=== PATIENT | male | born 1985 | race Caucasian/White ===

== ENCOUNTER 2018-11-18 16:27 | Emergency (ER) | payer MEDICAID ==
[~2018-11-18] VITALS: Ht 172.7 cm; Wt 60.8 kg
--- NOTE | 2018-11-18 16:40 | NUR ---
PT STATED THAT HE WAS NOT COMPLIANT WITH HIS HIV MEDICATION.
--- NOTE | 2018-11-18 16:40 | NUR ---
PT STATED THAT HE DRANK A LITER AND A HALF OF VODKA TODAY .
--- NOTE | 2018-11-18 16:40 | NUR ---
PT BIB RA WITH A C/O ETOH WITH N/V. PT IS ACTIVLY VOMITTING. PT WAS TRIAGED AND TAKEN TO ROOM 13. PT WAS PLACED ON THE MONITOR AND CONTINUOUS PULSE OX.
--- NOTE | 2018-11-18 16:50 | NUR ---
PT PULLED OFF ALL MONITOR LEADS. LEADS WERE ALL REPLACED AND PT WAS TOLD TO LEAVE THEM ON.
[2018-11-18] MEDS ORDERED: LORAZEPAM INJ 2 MG/ML VIAL ONE (16:55)
[2018-11-18] MEDS ORDERED: IV NS 0.9% 1,000 ML BAG IV ONE (17:00)
[2018-11-18] MEDS ORDERED: ONDANSETRON HCL/PF 4 MG/2 ML VIAL IVP ONE (17:00)
[2018-11-18] MEDS ORDERED: LORAZEPAM INJ 2 MG/ML VIAL IV ONE (17:00)
[2018-11-18] MEDS ORDERED: ONDANSETRON HCL/PF 4 MG/2 ML VIAL ONE (17:04)
[2018-11-18 17:13] LABS: BASOPHILS # (AUTO) 0.1 /CMM (0.0-0.2); BASOPHILS % (AUTO) 1.2 % (0.0-2.0); EOSINOPHILS % (AUTO) 0.5 % (0.0-6.0); HEMATOCRIT 46 % (39-51); HEMOGLOBIN 15.9 g/dL (13.5-17.5); LYMPHOCYTES # (AUTO) 1.1 /CMM (0.8-4.8); LYMPHOCYTES % (AUTO) 21.5 % (20.0-44.0); MEAN CORPUSCULAR HGB CONC 35 g/dl (31.0-36.0); MEAN CORPUSCULAR VOLUME 93 fL (80-96); MONOCYTES # (AUTO) 0.4 /CMM (0.1-1.30); MONOCYTES % (AUTO) 6.9 % (2.0-12.0); NEUTROPHILS # (AUTO) 3.6 /CMM (1.8-8.9); NEUTROPHILS % (AUTO) 69.9 % (43.0-81.0); PLATELET COUNT (AUTO) 129 /CMM (150-450); RED BLOOD CELL COUNT(AUTO) 4.92 MIL/uL (4.5-6.0); WHITE BLOOD COUNT (AUTO) 5.2 K/uL (4.3-11.0)
[2018-11-18 17:17] LABS: CALCIUM, SERUM 8.3 mg/dL (8.5-10.1); POTASSIUM 3.6 mmol/L (3.5-5.1)
[2018-11-18 17:22] LABS: ALBUMIN 4.6 g/dL (3.4-5.0); BILIRUBIN,DIRECT 0.3 mg/dL (0.0-0.2); TOTAL PROTEIN, SERUM 8.3 g/dL (6.4-8.2)
--- NOTE | 2018-11-18 17:25 | NUR ---
PT IS TAKING OFF THE BP CUFF AND PULSE OX SENSOR. BOTH WERE REPLACED AND PT WAS TOLD TO LEAVE THEM ON. PT STATED: "I'M SORRY. I WILL LEAVE THEM ALONE". PT IS ON THE MONITOR AND CONTINUOUS PULSE OX.
--- NOTE | 2018-11-18 18:20 | NUR ---
PT PULLED OUT HIS IV AND BLOOD GOT ON THE FLOOR.
--- NOTE | 2018-11-18 18:20 | NUR ---
PT IS ON THE GURNEY NAKED WITH HIS CLOTHES ON THE FLOOR. ALL MONITOR LEADS WERE REMOVED AND PT REMOVED THE LINENS FROM THE GURNEY.
[2018-11-18] MEDS ORDERED: HALOPERIDOL LACTATE INJ 5 MG/ML VIAL ONE (18:25)
[2018-11-18] MEDS ORDERED: HALOPERIDOL LACTATE INJ 5 MG/ML VIAL IM ONE (18:30)
--- NOTE | 2018-11-18 18:47 | NUR ---
PT APPEARS TO BE RESTING COMFORTABLY WITH NO S/S OF PAIN OR DISTRESS.
--- NOTE | 2018-11-18 19:20 | NUR ---
PT IS UP BESIDE THE BED. PT IS TRYING TO USE A URINAL. PT WAS ASKED TO GO BACK TO THE BED AND REST.
--- NOTE | 2018-11-18 20:07 | NUR ---
PT PULLED OFF THE PULSE OX SENSOR AND IT WAS REPLACED.
--- NOTE | 2018-11-18 21:07 | NUR ---
PT STATED THAT HE WAS FEELING ANXIOUS AND THAT HIS PANCREAS WAS HURTING. DR. PERRY WAS NOTIFIED. DR PERRY OK'D PT TO BE DISCHARGED. PT STATED HE WAS HOMELESS. 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 PT REC'D TWO SANDWICHES AND WATER. PT AMBULATED TO THE LOBBY WITH A STEADY GAIT. VSS. ID BAND WAS REMOVED AND PT REC'D THE HOMELESS PACKET.
[2018-11-18 21:30] VITALS: BP 133/87
[2018-12-02] MEDS ORDERED: ONDA4TAB5 PO (18:30)
[2018-12-02] MEDS ORDERED: CHLO25CA22 PO (18:30)
== END 2018-11-18 21:32 | disposition home or self-care (01) ==
LOC: ER 16:29
DX: F10.239 Alcohol dependence with withdrawal, unspecified (principal); F10.229 Alcohol dependence with intoxication, unspecified; F32.9 Major depressive disorder, single episode, unspecified; E86.0 Dehydration; R45.1 Restlessness and agitation; R00.0 Tachycardia, unspecified; Y90.8 Blood alcohol level of 240 mg/100 ml or more; Z60.2 Problems related to living alone; Z87.19 Personal history of other diseases of the digestive system
CPT/HCPCS: 36415; 80048; 80076; 80307; 83690; 85025; 96361; 96372; 96374; 96375; 99283; J1630; J2060; J2405; J7030; G0480

== ENCOUNTER 2018-11-21 19:27 | Emergency (ER) | payer MEDICAID ==
[~2018-11-21] VITALS: Ht 170.2 cm; Wt 65.8 kg
--- NOTE | 2018-11-21 19:32 | NUR ---
[facility]; PT AWAKE, VERBALLY RESPONSIVE, PT ON MONITOR, VSS, PENDING MD THRASHER
[2018-11-21] MEDS ORDERED: ONDANSETRON HCL/PF 4 MG/2 ML VIAL ONE (19:37)
[2018-11-21] MEDS ORDERED: ONDANSETRON HCL/PF 4 MG/2 ML VIAL IVP ONE (20:00)
[2018-11-21] MEDS ORDERED: IV NS 0.9% 1,000 ML BAG IV ONE ×2 (20:00→22:30)
[2018-11-21] MEDS ORDERED: LORAZEPAM INJ 2 MG/ML VIAL IV ONE ×2 (20:30→23:00)
[2018-11-21] MEDS ORDERED: LORAZEPAM INJ 2 MG/ML VIAL ONE ×2 (20:35→21:15)
--- NOTE | 2018-11-21 21:16 | NUR ---
ATIVAN 2MG IVP, ORDER FOR ATIVAN 1MG IVP, WASTED 1MG WITH CAR SHAGGER
--- NOTE | 2018-11-22 02:10 | NUR ---
VITAL SIGNS WITHIN NORMAL LIMITS.
[2018-11-22] MEDS ORDERED: LORAZEPAM 1 MG TABLET ONE (04:40)
[2018-11-22] MEDS ORDERED: ONDANSETRON 4 MG TAB.RAPDIS ONE (04:41)
[2018-11-22] MEDS ORDERED: LORAZEPAM 1 MG TABLET PO ONE (05:00)
[2018-11-22] MEDS ORDERED: ONDANSETRON 4 MG TAB.RAPDIS SL ONE (05:00)
[2018-11-22 06:18] VITALS: BP 112/83
[2018-12-02] MEDS ORDERED: ONDA4TAB5 PO (18:30)
[2018-12-02] MEDS ORDERED: CHLO25CA22 PO (18:30)
== END 2018-11-22 06:19 | disposition home or self-care (01) ==
LOC: ER 19:28
DX: R11.2 Nausea with vomiting, unspecified (principal); F10.129 Alcohol abuse with intoxication, unspecified; R40.4 Transient alteration of awareness; F32.9 Major depressive disorder, single episode, unspecified; Z60.2 Problems related to living alone; Y90.9 Presence of alcohol in blood, level not specified
CPT/HCPCS: 70450; 96361; 96374; 96375; 96376; 99284; J2060 ×2; J2405; J7030 ×2; Q0162

== ENCOUNTER 2018-11-27 12:59 | Inpatient (IN) | payer MEDICAID ==
[~2018-11-27] VITALS: Ht 167.6 cm; Wt 62.2 kg
--- NOTE | 2018-11-27 13:06 | NUR ---
PT [id number], FROM A HOTEL, DRUNK, 3.1 BOTTLE OF VODKA ON SCENE, PT IS AAOX3, NOT IN RESPIRATORY DISTRESS, V/S STABLE, HOOKED TO MONITOR, KEPT RESTED AND COMFORTABLE, WILL CONTINUE TO MONITOR.
--- NOTE | 2018-11-27 13:22 | NUR ---
URINAL PROVIDED, UNABLE TO PROVIDE URINE SPECIMEN.
[2018-11-27] MEDS ORDERED: LORAZEPAM 1 MG TABLET ONE (15:04)
--- NOTE | 2018-11-27 15:10 | NUR ---
PT STATES HE FEEL ANXIOUS, ADIEL SILVA AWARE.
[2018-11-27] MEDS ORDERED: LORAZEPAM 1 MG TABLET PO ONE (15:30)
--- NOTE | 2018-11-27 17:28 | NUR ---
PT IS ASLEEP AT BED EASILY AROUSABLE.
[2018-11-27] MEDS ORDERED: KETOROLAC TROMETHAMINE INJ 30 MG/ML VIAL IV ONE (19:30)
[2018-11-27] MEDS ORDERED: ONDANSETRON HCL/PF 4 MG/2 ML VIAL IVP ONE (19:30)
[2018-11-27] MEDS ORDERED: IV NS 0.9% 1,000 ML BAG IV ONE ×2 (19:30→22:00)
[2018-11-27] MEDS ORDERED: ONDANSETRON HCL/PF 4 MG/2 ML VIAL ONE (19:41)
[2018-11-27] MEDS ORDERED: KETOROLAC TROMETHAMINE 15 MG/ML VIAL ONE (19:41)
[2018-11-27 19:46] LABS: BASOPHILS # (AUTO) 0.1 /CMM (0.0-0.2); BASOPHILS % (AUTO) 0.8 % (0.0-2.0); EOSINOPHILS % (AUTO) 0.1 % (0.0-6.0); HEMATOCRIT 42 % (39-51); HEMOGLOBIN 14.2 g/dL (13.5-17.5); LYMPHOCYTES # (AUTO) 0.9 /CMM (0.8-4.8); LYMPHOCYTES % (AUTO) 13.8 % (20.0-44.0); MEAN CORPUSCULAR HGB CONC 34 g/dl (31.0-36.0); MEAN CORPUSCULAR VOLUME 93 fL (80-96); MONOCYTES # (AUTO) 0.6 /CMM (0.1-1.30); NEUTROPHILS # (AUTO) 4.9 /CMM (1.8-8.9); NEUTROPHILS % (AUTO) 76.3 % (43.0-81.0); PLATELET COUNT (AUTO) 115 /CMM (150-450); RED BLOOD CELL COUNT(AUTO) 4.48 MIL/uL (4.5-6.0); WHITE BLOOD COUNT (AUTO) 6.5 K/uL (4.3-11.0)
[2018-11-27 19:54] LABS: CALCIUM, SERUM 8.2 mg/dL (8.5-10.1); CREATININE 0.7 mg/dL (0.6-1.3); POTASSIUM 3.2 mmol/L (3.5-5.1)
[2018-11-27 20:01] LABS: ALBUMIN 4.1 g/dL (3.4-5.0); BILIRUBIN,DIRECT 0.4 mg/dL (0.0-0.2); TOTAL PROTEIN, SERUM 7.9 g/dL (6.4-8.2)
[2018-11-27 20:39] LABS: ALCOHOL, BLOOD 350 mg/dL (0-0); SALICYLATE 0.4 mg/dL (2.8-20.0)
[2018-11-27 20:50] LABS: ACETAMINOPHEN < 2 ug/ml (10-30)
[2018-11-27] MEDS ORDERED: LORAZEPAM INJ 2 MG/ML VIAL ONE (20:59)
[2018-11-27] MEDS ORDERED: LORAZEPAM INJ 2 MG/ML VIAL IV ONE (21:00)
[2018-11-27] MEDS ORDERED: MORPHINE SULFATE INJ 4 MG/ML DISP.SYRIN ONE (21:07)
[2018-11-27] MEDS ORDERED: MORPHINE SULFATE INJ 2 MG/ML DISP.SYRIN IV ONE (21:30)
[2018-11-27] MEDS ORDERED: MAGNESIUM HYDROXIDE 30 ML UDC PO PRN (22:00)
[2018-11-27] MEDS ORDERED: POTASSIUM CL. PREMIX PERIPHER. 50 ML IV SCH (22:00)
[2018-11-27] MEDS ORDERED: Z GUARD REMEDY 2 OZ OINT TP PRN (22:00)
[2018-11-27] MEDS ORDERED: MAG HYDROX/AL HYDROX/SIMETH 30 ML UDC PO PRN (22:00)
[2018-11-27] MEDS ORDERED: ACETAMINOPHEN 325 MG TABLET PO PRN (22:00)
--- NOTE | 2018-11-27 22:34 | NUR ---
REPORT GIVEN FOR CONTINUATION OF CARE.
--- NOTE | 2018-11-27 23:15 | NUR ---
RN OPEN NOTES RECEIVED PATIENT FROM ER VIA GURNEY, RESTING IN BED, EASILY AROUSABLE. A/O 3. NO SIGNS OF DISTRESS OR DISCOMFORT. BREATHING EVEN AND UNLABORED. IV ACCESS IN L HAND WITH NS INFUSING, PATENT AND INTACT, NO SIGNS OF REDNESS OR INFILTRATION. ATTACHED PATIENT TO TELE MONITOR WITH ST 108 NOTED. ORIENTED PATIENT TO UNIT AND ROOM. SKIN INTACT WITH MULTIPLE BRUISED NOTED, PHOTOS TAKEN. BED IN LOW LOCKED POSITION WITH SIDE RAILS X2. CALL LIGHT WITHIN REACH. WILL CONTINUE TO MONITOR.
--- NOTE | 2018-11-27 23:19 | NUR ---
PT TRANSFERED TO VIA [facility]AN[facility] DELVALLE
[2018-11-27 23:45] VITALS: BP 119/86
[2018-11-28] MEDS ORDERED: POTASSIUM CL. PREMIX PERIPHER. 50 ML ONE (00:25)
[2018-11-28] MEDS: IV NS 0.9% 1,000 ML IV PRN ×3 (00:38→21:04)
[2018-11-28] MEDS: LORAZEPAM INJ 2 MG/ML VIAL IV PRN ×7 (01:38→23:03)
--- NOTE | 2018-11-28 01:38 | NUR ---
RN NOTES ADMINISTERED ATIVAN 1MG ORDERED AT PATIENT REQUEST FOR ANXIETY AND TREMOR WITHDRAWAL SYMPTOMS. NO COMPLICATIONS NOTED. WILL CONTINUE TO MONITOR.
[2018-11-28] MEDS: ONDANSETRON HCL/PF 4 MG/2 ML VIAL IVP PRN ×2 (01:46→21:21)
--- NOTE | 2018-11-28 01:46 | NUR ---
RN NOTES ADMINISTERED ZOFRAN 4MG ORDERED FOR NAUSEA AT PATIENT REQUEST. NO COMPLICATIONS NOTED. WILL CONTINUE TO MONITOR.
[2018-11-28 04:00] VITALS: BP 123/75
--- NOTE | 2018-11-28 04:00 | NUR ---
RN NOTES ADMINISTERED ATIVAN 1MG ORDERED AT PATIENT REQUEST FOR ANXIETY AND TREMOR WITHDRAWAL SYMPTOMS. NO COMPLICATIONS NOTED. WILL CONTINUE TO MONITOR.
[2018-11-28 07:07] LABS: BASOPHILS % (AUTO) 0.5 % (0.0-2.0); EOSINOPHILS % (AUTO) 0.4 % (0.0-6.0); HEMATOCRIT 32 % (39-51); LYMPHOCYTES # (AUTO) 0.7 /CMM (0.8-4.8); LYMPHOCYTES % (AUTO) 13.4 % (20.0-44.0); MEAN CORPUSCULAR HGB CONC 35 g/dl (31.0-36.0); MEAN CORPUSCULAR VOLUME 94 fL (80-96); MONOCYTES # (AUTO) 0.5 /CMM (0.1-1.30); MONOCYTES % (AUTO) 10.1 % (2.0-12.0); NEUTROPHILS # (AUTO) 4.1 /CMM (1.8-8.9); NEUTROPHILS % (AUTO) 75.6 % (43.0-81.0); PLATELET COUNT (AUTO) 75 /CMM (150-450); RED BLOOD CELL COUNT(AUTO) 3.39 MIL/uL (4.5-6.0); WHITE BLOOD COUNT (AUTO) 5.4 K/uL (4.3-11.0)
--- NOTE | 2018-11-28 07:25 | NUR ---
RN CLOSING NOTES PATIENT RESTING IN BED, EASILY AROUSABLE. A/O 3. NO SIGNS OF DISTRESS OR DISCOMFORT. BREATHING EVEN AND UNLABORED. IV ACCESS IN L HAND WITH NS INFUSING, PATENT AND INTACT, NO SIGNS OF REDNESS OR INFILTRATION. ON TELE MONITOR WITH ST NOTED. ALL NEEDS MET. NO SIGNIFICANT CHANGES THROUGH THE NIGHT. BED IN LOW LOCKED POSITION WITH SIDE RAILS X2. CALL LIGHT WITHIN REACH. ENDORSED TO AM SHIFT FOR MIRA.
--- NOTE | 2018-11-28 07:38 | NUR ---
DROP WIRE ALIGNER OPENING NOTES. RECEIVED PT I N BED, ASLEEP. EASILY AWAKEN. A/O X3. TOLERATING RA, WITH NO ACUTE RESPIRATORY DISTRESS NOTED. PT DENIES PAIN. CURRENTLY ON NPO, CONCERN OF HAVING ICE CHIPS, RN STATED NEEDED TO F/U WITH MD FIRST, EXPLAINED BENEFITS. ON TELEMONITORING SINUS TACHY, HR OF 116-120S. IVF NS AT 150ML/HR TO LFA G20, INTACT AND FLUID INFUSING WELL. PT KEPT COMFORTABLE. PT'S BED KEPT IN LOWEST, LOCKED POSITION WITH SR X 2. CALL LIGHT KEPT WITHIN REACH. WILL CONTINUE PLAN OF CARE.
[2018-11-28 07:43] LABS: THYROID STIMULATING HORMONE 1.797 uIU/mL (0.358-3.74)
[2018-11-28 07:45] LABS: CALCIUM, SERUM 7.4 mg/dL (8.5-10.1); CREATININE 0.6 mg/dL (0.6-1.3); MAGNESIUM 1.6 mg/dL (1.8-2.4); PHOSPHORUS 3.8 mg/dL (2.5-4.9); POTASSIUM 3.2 mmol/L (3.5-5.1)
[2018-11-28 08:00] VITALS: BP 114/74
--- NOTE | 2018-11-28 08:00 | NUR ---
RN NOTES PT REQUESTING FOR ICE CHIPS, CURRENTLY ON NPO. CRISIS MENTAL HEALTH THERAPIST CC MADE AWARE, AND ORDERED OKAY TO GIVE ICE CHIPS.
[2018-11-28] MEDS: PANTOPRAZOLE 40 MG VIAL IV SCH (08:13)
[2018-11-28] MEDS: HYDROCODONE/APAP 5/325MG 1 EACH TABLET PO PRN (08:13)
[2018-11-28 08:22] LABS: BAND % (MANUAL) 2 % (0.0-5.0); LYMPHOCYTES % (MANUAL) 9 % (16-48); MONOCYTES % (MANUAL) 9 % (0-11.0); NEUTROPHILS % (MANUAL) 80 (42-76)
[2018-11-28] MEDS ORDERED: BUSP10TA3 PO (08:53)
[2018-11-28] MEDS ORDERED: OXYC5TAB3 PO (08:53)
[2018-11-28] MEDS ORDERED: ALPR0.5T8 PO (08:53)
[2018-11-28] MEDS ORDERED: ABAC1TAB15 PO (08:53)
[2018-11-28] MEDS ORDERED: TOPI50TA24 PO (08:54)
[2018-11-28] MEDS ORDERED: PROP20TA19 PO (08:54)
[2018-11-28] MEDS ORDERED: SENN8.6T19 PO (08:54)
[2018-11-28] MEDS ORDERED: TOPI25TA49 PO (08:54)
[2018-11-28] MEDS ORDERED: POTASSIUM CHLORIDE 20 MEQ TAB.PRT.SR PO SCH (10:00)
[2018-11-28] MEDS: Magnesium 1GM/D5W 100ML PREMIX 100 ML IV SCH ×2 (10:24→11:39)
[2018-11-28] MEDS: MORPHINE SULFATE INJ 2 MG/ML DISP.SYRIN IV PRN ×3 (12:59→23:13)
[2018-11-28 16:00] VITALS: BP 131/85
--- NOTE | 2018-11-28 18:29 | NUR ---
MS RN CLOSING NOTES PT IN BED,INTERMITTENTLY DOZING OFF. A/O X3. TOLERATING RA, WITH NO ACUTE RESPIRATORY DISTRESS NOTED. PT DENIES PAIN AT THIS MOMENT. ON NPO DIET STILL BUT OK TO HAVE ICE CHIPS. IVF NS AT 150ML/HR TO LFA G20, INTACT AND FLUID INFUSING WELL. PT KEPT COMFORTABLE. PT'S BED KEPT IN LOWEST, LOCKED POSITION WITH SR X 2. CALL LIGHT KEPT WITHIN REACH. WILL ENDORSE TO TURPENTINER NURSE FOR MIRA.
--- NOTE | 2018-11-28 19:58 | NUR ---
RN NOTES. RECEIVED PT IN BED, ASLEEP. EASILY AWAKEN. A/O X3. TOLERATING RA, WITH NO ACUTE RESPIRATORY DISTRESS NOTED. PT DENIES PAIN. CURRENTLY ON NPO, CONCERN OF HAVING ICE CHIPS, NO N/V NOTED AT THIS TIME, IVF NS AT 150ML/HR TO LFA G20, INTACT AND FLUID INFUSING WELL. PT KEPT COMFORTABLE. SAFETY MEASURES INPLACED, BED KEPT IN LOWEST, LOCKED POSITION WITH SR X 2. CALL LIGHT WITHIN REACH.
[2018-11-28 20:00] VITALS: BP 147/72
[2018-11-29] MEDS: LORAZEPAM INJ 2 MG/ML VIAL IV PRN ×3 (02:47→11:06)
[2018-11-29] MEDS: MORPHINE SULFATE INJ 2 MG/ML DISP.SYRIN IV PRN ×2 (02:48→09:13)
[2018-11-29] MEDS: IV NS 0.9% 1,000 ML IV PRN ×3 (04:04→17:11)
--- NOTE | 2018-11-29 07:15 | NUR ---
MS RN Opening Notes Patient currently asleep, resting in bed. Semi-Fowlers position, supine. Aspiration and seizure precautions in place. Alert and oriented x3, able to make needs known. No complaints of shortness of breath or chest/abdominal pain at this time. Respirations even and unlabored on room air. Peripheral IV to the left forearm 20 gauge, intact, patent and infusing NS at 150 mL/hr. Updated patient on current plan of care and safety measures. Safety and fall precautions in place: bed in lowest and locked position, side rails up x2, bed alarm on, call light and personal possessions within reach. Room well lit and floor clear of items. Reminded patient of safety measures, verbalized understanding. Patient currently clean, dry and comfortable. Will continue to monitor and intervene as needed.
[2018-11-29] MEDS: PANTOPRAZOLE 40 MG VIAL IV SCH (07:30)
[2018-11-29 07:34] LABS: BASOPHILS # (AUTO) 0.1 /CMM (0.0-0.2); EOSINOPHILS % (AUTO) 1.3 % (0.0-6.0); HEMATOCRIT 31 % (39-51); HEMOGLOBIN 10.6 g/dL (13.5-17.5); LYMPHOCYTES # (AUTO) 1.1 /CMM (0.8-4.8); MEAN CORPUSCULAR HGB CONC 35 g/dl (31.0-36.0); MEAN CORPUSCULAR VOLUME 93 fL (80-96); MONOCYTES # (AUTO) 0.6 /CMM (0.1-1.30); MONOCYTES % (AUTO) 10.5 % (2.0-12.0); NEUTROPHILS # (AUTO) 3.7 /CMM (1.8-8.9); NEUTROPHILS % (AUTO) 67.2 % (43.0-81.0); PLATELET COUNT (AUTO) 89 /CMM (150-450); WHITE BLOOD COUNT (AUTO) 5.6 K/uL (4.3-11.0)
--- NOTE | 2018-11-29 07:40 | NUR ---
RN NOTES ALL NEEDS ATTENDED AND MET, ATIVAN GIVEN AT 0655AM, REPOSITIONED FOR COMFORT, NOT IN RESPIRATORY DISTRESS NOTED, IV ACCESS INTACT AND PATENT ENDORSED TO AM NURSE FOR CONTINUITY OF CARE.
[2018-11-29 07:48] LABS: CALCIUM, SERUM 8.1 mg/dL (8.5-10.1); CREATININE 0.6 mg/dL (0.6-1.3); MAGNESIUM 1.7 mg/dL (1.8-2.4); PHOSPHORUS 2.2 mg/dL (2.5-4.9); POTASSIUM 3.2 mmol/L (3.5-5.1)
[2018-11-29 07:54] VITALS: BP 117/72
[2018-11-29 08:00] VITALS: BP 117/72
[2018-11-29 08:41] LABS: EOSINOPHILS % (MANUAL) 1 % (0-4); LYMPHOCYTES % (MANUAL) 10 % (16-48); MONOCYTES % (MANUAL) 6 % (0-11.0); NEUTROPHILS % (MANUAL) 83 (42-76)
[2018-11-29] MEDS ORDERED: POTASSIUM CHLORIDE 20 MEQ TAB.PRT.SR PO SCH (10:30)
[2018-11-29] MEDS ORDERED: Magnesium 1GM/D5W 100ML PREMIX 100 ML IV SCH (11:00)
[2018-11-29] MEDS: Magnesium 1GM/D5W 100ML PREMIX 100 ML IV SCH ×2 (11:06→12:14)
[2018-11-29] MEDS ORDERED: POTASSIUM CHLORIDE 20 MEQ TAB.PRT.SR PO ONE (12:00)
[2018-11-29] MEDS: Thiamine 100 MG in IV D5W 50 ML IV SCH (12:24)
[2018-11-29] MEDS ORDERED: HYDROMORPHONE MDV 1 MG in IV NS 0.9% 50 ML IV PRN (12:30)
--- NOTE | 2018-11-29 12:33 | NUR ---
Social service consult requested by SHIRLEY Toledo for possible homelessness and alcohol abuse. Pt. is a 33 year old male who was admitted to [facility] for pancreatitis and alcohol intoxication. Per H& P, pt. was found in a motel with a few empty vodka bottles by his side. ZAKI met with pt. bedside. Pt. is alert and oriented x 3. Pt. is going through alcohol withdrawals and his hands were shaking throughout the entire assessment. Pt. states he is feeling a little better than when he initially arrived at the hospital. Pt. denies any suicidal ideations and stated, " I wasn't drinking to end my life." Pt. stated, " when I drink, I usually binge drink." Pt's alcohol of choice in Vodka. Pt. has been drinking alcohol since age 21. Pt. is currently homeless and has been staying in motels or in his car. Pt. has been homeless for a couple of weeks. Prior to being homeless, pt. was staying with his ex-boyfriend. Pt's cellphone number is . 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 Pt. is not sure as to where he is going to go once discharged from the hospital. Pt. states he is interested in going to a alcohol rehab. program. ZAKI to refer pt. to [facility] in [place]. ZAKI faxed clinical referral packet to Sosa Chiang at [facility] at . Sosa's contact is x [phone]. ZAKI contacted Sosa and left her a voicemail message informing her that ZAKI faxed clinical referral packet. ZAKI did inform pt. that there is usually a waitlist for [facility] and if pt. has any other discharge plans. Pt. stated he will make some phone calls and follow up with ZAKI at a later time.
[2018-11-29] MEDS: CHLORDIAZEPOXIDE HCL 25 MG CAPSULE PO SCH ×2 (13:18→20:42)
[2018-11-29] MEDS: Folic acid 1 MG in IV D5W 50 ML IV SCH (13:18)
[2018-11-29] MEDS: HYDROMORPHONE 1 MG/1 ML DISP.SYRIN IV PRN ×3 (13:59→23:36)
[2018-11-29 16:00] VITALS: BP 132/77
[2018-11-29] MEDS ORDERED: K PHOS NEUTRAL 250 MG TABLET PO ONE (16:00)
[2018-11-29 16:07] VITALS: BP 132/77
--- NOTE | 2018-11-29 18:47 | NUR ---
MS RN Closing Notes Patient currently awake, resting in bed. Semi-Fowlers position, supine. Aspiration and seizure precautions in place. Alert and oriented x3, able to make needs known. No complaints of shortness of breath or chest/abdominal pain at this time. Respirations even and unlabored on room air. Peripheral IV to the left forearm 20 gauge, intact, patent and infusing NS at 150 mL/hr. Updated patient on current plan of care and safety measures. Safety and fall precautions in place: bed in lowest and locked position, side rails up x2, bed alarm on, call light and personal possessions within reach. Room well lit and floor clear of items. Reminded patient of safety measures, verbalized understanding. Patient currently clean, dry and comfortable. All due medications given as ordered, PRN given when needed. All needs attended to. Will endorse to assistant shift supervisor RN for continuity of care.
--- NOTE | 2018-11-29 19:47 | NUR ---
RECEIVED BEDSIDE REPORT, PT IN BED AWAKE ALERT ORIENTEDX4, BREATHING EVEN AND UNLABORED ON ROOM AIR, NO COUGH OR CONGESTION AT THE MOMENT. ADMINISTERED DILAUDID PRN FOR ABD PAIN 02/16. IV ACCESS ON THE L FA 20G WITH NS@ 150ML/HR. BED IN LOWEST LOCKED POSITION, CALL LIGHT WITHIN REACH AT ALL TIMES, WILL CONTINUE TO MONITOR FREQUENTLY
[2018-11-30] MEDS: CHLORDIAZEPOXIDE HCL 25 MG CAPSULE PO SCH ×3 (03:41→20:43)
[2018-11-30] MEDS: HYDROMORPHONE 1 MG/1 ML DISP.SYRIN IV PRN ×4 (05:48→22:13)
[2018-11-30] MEDS: IV NS 0.9% 1,000 ML IV PRN (05:48)
--- NOTE | 2018-11-30 06:06 | NUR ---
RN MS CLOSING PT REMAINS IN BED AWAKE ALERT ORIENTEDX4, BREATHING EVEN AND UNLABORED ON ROOM AIR, NO COUGH OR CONGESTION AT THE MOMENT, BODY SHAKES ARE OBSERVED LESS SEVERE THAN AT START OF SHIFT. NO COMPLAINT OF PAIN OR DISCOMFORT AT THIS TIME. IV ACCESS ON THE L FA 20G WITH NS@ 150ML/HR. BED IN LOWEST LOCKED POSITION, CALL LIGHT WITHIN REACH AT ALL TIMES, WILL ENDORSE TO DAY NURSE.
[2018-11-30 06:31] LABS: BASOPHILS # (AUTO) 0.1 /CMM (0.0-0.2); BASOPHILS % (AUTO) 1.1 % (0.0-2.0); EOSINOPHILS % (AUTO) 2.7 % (0.0-6.0); HEMATOCRIT 33 % (39-51); HEMOGLOBIN 11.4 g/dL (13.5-17.5); LYMPHOCYTES # (AUTO) 0.8 /CMM (0.8-4.8); LYMPHOCYTES % (AUTO) 16.3 % (20.0-44.0); MEAN CORPUSCULAR HGB CONC 35 g/dl (31.0-36.0); MEAN CORPUSCULAR VOLUME 93 fL (80-96); MONOCYTES # (AUTO) 0.7 /CMM (0.1-1.30); MONOCYTES % (AUTO) 13.3 % (2.0-12.0); NEUTROPHILS # (AUTO) 3.5 /CMM (1.8-8.9); NEUTROPHILS % (AUTO) 66.6 % (43.0-81.0); PLATELET COUNT (AUTO) 110 /CMM (150-450); RED BLOOD CELL COUNT(AUTO) 3.51 MIL/uL (4.5-6.0); WHITE BLOOD COUNT (AUTO) 5.2 K/uL (4.3-11.0)
[2018-11-30 07:08] LABS: CALCIUM, SERUM 8.1 mg/dL (8.5-10.1); CREATININE 0.5 mg/dL (0.6-1.3); MAGNESIUM 1.8 mg/dL (1.8-2.4); PHOSPHORUS 3.4 mg/dL (2.5-4.9); POTASSIUM 3.2 mmol/L (3.5-5.1)
[2018-11-30 07:35] LABS: BAND % (MANUAL) 4 % (0.0-5.0); LYMPHOCYTES % (MANUAL) 11 % (16-48); MONOCYTES % (MANUAL) 9 % (0-11.0); NEUTROPHILS % (MANUAL) 76 (42-76)
[2018-11-30 08:00] VITALS: BP_SYST 126; BP_SYST 129; BP_DIAS 89
--- NOTE | 2018-11-30 08:00 | NUR ---
MS RN OPENING NOTES Received Patient comfortable and sitting up in bed. A/O x 4. VS stable with no acute distress. Breathing even and unlabored with SPO2 97% on room air with no respiratory distress. Patient states pain level of 6/10 ABDOMINAL PAIN. Will intervene as ordered. PIV on LFA 20g clean, dry, intact and flushes well. IVF NS running at 150ml/hr. Bed locked and set to lowest position with side rails x 2 up. Call light within reach. Will continue to monitor.
[2018-11-30] MEDS: HYDROCODONE/APAP 5/325MG 1 EACH TABLET PO PRN (09:17)
[2018-11-30] MEDS: PANTOPRAZOLE 40 MG VIAL IV SCH (09:18)
[2018-11-30] MEDS: POTASSIUM CL. PREMIX PERIPHER. 50 ML IV SCH ×4 (09:44→14:28)
--- NOTE | 2018-11-30 11:32 | NUR ---
Social service consult follow-up conducted by ZAKI. Social service consult initially requested by CHIEF DISPATCHER Paris Monte for possible homelessness and alcohol abuse. YONI Gamez, referred Pt. to [facility] in [place], [place] on 11/29/18 for alcohol rehabilitation program. ZAKI faxed clinical referral packet to Sosa Chiang at [facility] at . Minnie contact is x [phone]. ZAKI left an additional voicemail to follow-up on the referral. ZAKI updated Pt. on the state of his referral, and informed Pt. of usual waitlist for [facility]. ZAKI followed-up regarding discharge plans, and Pt. states that he will be staying with his cousin until he is admitted to treatment. His cousin is Annmraie Connell. [address] [place], [place]. Her contact number is . ZAKI also provided Pt. with the following referrals: [facility], [address], [facility] [address], and [facility], [address] [place], [address]. and [facility] [address] [facility] [address]. Homeless waiver has been signed by Pt. and placed in Pt.s chart. Pt. will require a TAP card upon discharge to get his car. No other services needed at this time. ZAKI is available if needed.
[2018-11-30] MEDS: Folic acid 1 MG in IV D5W 50 ML IV SCH (13:33)
[2018-11-30] MEDS: Thiamine 100 MG in IV D5W 50 ML IV SCH (13:35)
[2018-11-30] MEDS: BLOOD SUGAR DIAGNOSTIC 1 EACH STRIP IN SCH ×2 (13:43→21:35)
[2018-11-30 16:00] VITALS: BP 130/84
--- NOTE | 2018-11-30 19:05 | NUR ---
MS RN NOTES RECEIVED PT IN BED AWAKE AND ABLE TO MAKE NEEDS KNOWN. PT A/O x 4. RESPIRATIONS EVEN AND UNLABORED WITH NO S/S OF ACUTE DISTRESS OR SOB NOTED. PT DENIES PAIN AT THIS TIME. IV ON LFA #20G INTACT AND PATENT WITH D5 LR RUNNING @250ML/HR. SAFETY MEASURES IN PLACE WITH BED IN LOWEST LOCKED POSITIONS WITH SIDE RAILS UP X2. CALL LIGHT WITHIN REACH. WILL CONTINUE TO MONITOR.
[2018-11-30 19:43] LABS: EOSINOPHILS % (AUTO) 3.1 % (0.0-6.0); HEMATOCRIT 34 % (39-51); HEMOGLOBIN 11.7 g/dL (13.5-17.5); LYMPHOCYTES % (AUTO) 20.6 % (20.0-44.0); MEAN CORPUSCULAR HGB CONC 34 g/dl (31.0-36.0); MEAN CORPUSCULAR VOLUME 94 fL (80-96); MONOCYTES # (AUTO) 0.7 /CMM (0.1-1.30); MONOCYTES % (AUTO) 15.1 % (2.0-12.0); NEUTROPHILS # (AUTO) 2.8 /CMM (1.8-8.9); NEUTROPHILS % (AUTO) 60.2 % (43.0-81.0); PLATELET COUNT (AUTO) 137 /CMM (150-450); RED BLOOD CELL COUNT(AUTO) 3.63 MIL/uL (4.5-6.0); WHITE BLOOD COUNT (AUTO) 4.6 K/uL (4.3-11.0)
--- NOTE | 2018-11-30 20:01 | NUR ---
MS RN CLOSING NOTES Patient comfortable and sitting up in bed. A/O x 4. VS stable with no acute distress. Breathing even and unlabored with SPO2 97% on room air with no respiratory distress. Patient states pain level of 7/10 ABDOMINAL PAIN. Administered Dilaudid 1mg at 1615. PIV on LFA 20g clean, dry, intact and flushes well. IVF D5LR running at 250ml/hr. Patient tolerating well. Bed locked and set to lowest position with side rails x 2 up. Call light within reach. Will endorse plan of care to oncoming shift.
[2018-11-30 20:13] LABS: MAGNESIUM 1.7 mg/dL (1.8-2.4); PHOSPHORUS 2.8 mg/dL (2.5-4.9)
[2018-11-30 20:24] VITALS: BP 129/90
[2018-11-30 21:00] LABS: BAND % (MANUAL) 3 % (0.0-5.0); LYMPHOCYTES % (MANUAL) 22 % (16-48); NEUTROPHILS % (MANUAL) 62 (42-76)
[2018-11-30 21:01] LABS: EOSINOPHILS % (MANUAL) 2 % (0-4); MONOCYTES % (MANUAL) 11 % (0-11.0)
[2018-11-30] MEDS: IV D5 LR 1,000 ML IV PRN (22:12)
[2018-11-30] MEDS: Magnesium 1GM/D5W 100ML PREMIX 100 ML IV SCH ×2 (22:12→23:36)
--- NOTE | 2018-11-30 22:13 | NUR ---
MS RN NOTES DILAUDID GIVEN TO PATIENT FOR PAIN MANAGEMENT FOR 8/10 PAIN IN ABDOMEN.
--- NOTE | 2018-11-30 22:15 | NUR ---
MS RN NOTES TALKED TO IVON ISABEL DNP ABOUT PT RECONCILE MEDS AND IV HYDRATION. WANTS TO CONTINUE AGGRESSIVE HYDRATION TO AT LEAST AM. FOR PT RECONCILE MEDS NEEDS TO BE ABLE TO HOLD DOWN FOOD WITHOUT N/V AND WILL RESTART HIS MEDICATION AFTER.
[2018-12-01] MEDS ORDERED: MAG HYDROX/AL HYDROX/SIMETH 30 ML UDC ONE (01:07)
[2018-12-01] MEDS ORDERED: LIDOCAINE VISCOUS 2% UD 15 ML UDC ONE (01:07)
[2018-12-01] MEDS: ONDANSETRON HCL/PF 4 MG/2 ML VIAL IVP PRN ×2 (01:59→21:05)
--- NOTE | 2018-12-01 01:59 | NUR ---
MS RN NOTES ZOFRAN GIVEN TO PT FOR VOMITING X1 AND NAUSEA.
[2018-12-01] MEDS: CHLORDIAZEPOXIDE HCL 25 MG CAPSULE PO SCH ×3 (03:33→20:37)
[2018-12-01] MEDS: HYDROMORPHONE 1 MG/1 ML DISP.SYRIN IV PRN ×4 (03:43→20:48)
--- NOTE | 2018-12-01 03:43 | NUR ---
MS RN NOTES DILAUDID GIVEN TO PT FOR PAIN 03/19.
[2018-12-01] MEDS: BLOOD SUGAR DIAGNOSTIC 1 EACH STRIP IN SCH ×3 (05:53→20:37)
[2018-12-01 07:18] LABS: BASOPHILS % (AUTO) 0.9 % (0.0-2.0); EOSINOPHILS % (AUTO) 2.7 % (0.0-6.0); HEMATOCRIT 36 % (39-51); HEMOGLOBIN 12.2 g/dL (13.5-17.5); LYMPHOCYTES # (AUTO) 1.3 /CMM (0.8-4.8); LYMPHOCYTES % (AUTO) 24.3 % (20.0-44.0); MEAN CORPUSCULAR HGB CONC 34 g/dl (31.0-36.0); MEAN CORPUSCULAR VOLUME 93 fL (80-96); MONOCYTES # (AUTO) 0.8 /CMM (0.1-1.30); MONOCYTES % (AUTO) 15.7 % (2.0-12.0); NEUTROPHILS # (AUTO) 2.9 /CMM (1.8-8.9); NEUTROPHILS % (AUTO) 56.4 % (43.0-81.0); PLATELET COUNT (AUTO) 180 /CMM (150-450); RED BLOOD CELL COUNT(AUTO) 3.83 MIL/uL (4.5-6.0); WHITE BLOOD COUNT (AUTO) 5.2 K/uL (4.3-11.0)
--- NOTE | 2018-12-01 07:28 | NUR ---
MS RN NOTES PT IN BED AWAKE AND ABLE TO MAKE NEEDS KNOWN. PT A/O x 4. RESPIRATIONS EVEN AND UNLABORED WITH NO S/S OF ACUTE DISTRESS OR SOB NOTED THROUGHOUT SHIFT. PT DENIES PAIN AND N/V AT THIS TIME. IV ON LFA #20G INTACT AND PATENT WITH D5 LR RUNNING @250ML/HR. SAFETY MEASURES IN PLACE WITH BED IN LOWEST LOCKED POSITIONS WITH SIDE RAILS UP X2. CALL LIGHT WITHIN REACH. WILL ENDORSE TO ONCOMING NURSE FOR MIRA.
[2018-12-01 07:33] LABS: ALBUMIN 3.6 g/dL (3.4-5.0); BILIRUBIN,TOTAL 1.2 mg/dL (0.2-1.0); CALCIUM, SERUM 8.8 mg/dL (8.5-10.1); CREATININE 0.6 mg/dL (0.6-1.3); MAGNESIUM 2.1 mg/dL (1.8-2.4); PHOSPHORUS 2.6 mg/dL (2.5-4.9); POTASSIUM 3.7 mmol/L (3.5-5.1); TOTAL PROTEIN, SERUM 7.1 g/dL (6.4-8.2)
[2018-12-01 08:00] VITALS: BP 128/80
[2018-12-01] MEDS: IV D5 LR 1,000 ML IV PRN ×2 (08:05→17:43)
--- NOTE | 2018-12-01 08:37 | NUR ---
RN NOTES RECEIVED PATIENT IN THE BED A/O X3, WITH ALCOHOL WITHDRAWAL, SHAKING HAND, ANXIOUS, ALSO WAS COMPLAINING OF PAIN 10/10 ON UPPER ABDOMEN. INFUSING D5LR AT 250 ML/HR ON LEFT FA INTACT. PATIENT HAS NO ACUTE RESPIRATORY DISTRESS, V/S STABLE. PATIENT USING WALKER. CALL LIGHT WITHIN TO REACH, SAFETY PRECAUTION MAINTAINED ALL THE TIME.
[2018-12-01 09:04] LABS: BAND % (MANUAL) 3 % (0.0-5.0); EOSINOPHILS % (MANUAL) 5 % (0-4); LYMPHOCYTES % (MANUAL) 23 % (16-48); MONOCYTES % (MANUAL) 16 % (0-11.0); NEUTROPHILS % (MANUAL) 53 (42-76)
[2018-12-01] MEDS: THIAMINE HCL 100 MG TABLET PO SCH (09:53)
[2018-12-01] MEDS: FOLIC ACID 1 MG TABLET PO SCH (09:53)
--- NOTE | 2018-12-01 09:53 | NUR ---
rn notes administered Dilaudid 1 mg/ml iv push for upper quadrant of abdomen pain 05/19 per patient request, also administered scheduled medication, v/s stable bp-128/80, p-90. patient anxious, shaking, infusing D5LR at 250 ml/he on left UA intact. patient ambulatory using walker to bathroom. call light within to reach. safety precaution maintained all the time.
[2018-12-01] MEDS: PANTOPRAZOLE 40 MG VIAL IV SCH (09:57)
--- NOTE | 2018-12-01 10:24 | NUR ---
RN NOTES PATIENT SIGN CONSENT FORM FOR CT OF PELVIC ABDOMEN. SEEN DNP BRIONNA, ASSIST PATIENT TO THE BATHROOM. CONTINUED MONITORING FOR SAFETY.
[2018-12-01] MEDS ORDERED: IOHEXOL-300 100 ML VIAL IV ONE (10:33)
[2018-12-01] MEDS ORDERED: IV NS 0.9% 250 ML IV ONE (10:33)
[2018-12-01] MEDS ORDERED: CT SWABBABLE VALVE TRANS SET 1 EA INFUS.SET MC ONE (10:33)
[2018-12-01] MEDS: LORAZEPAM INJ 2 MG/ML VIAL IV PRN (10:34)
--- NOTE | 2018-12-01 10:34 | NUR ---
RN NOTES ADMINISTERED ATIVAN 2 MG/ML IV PUSH FOR PATIENT GOING CT OF ABDOMEN, AND PELVIC. PER DNP ORDER. ALSO PATIENT ARTISTS' MODEL SAME TIME FOR CT.
--- NOTE | 2018-12-01 12:10 | NUR ---
RN NOTES BS -104 MG/DL NO COVERAGE GIVEN. ADMINISTERED SCHEDULED MEDICATION. PATIENT WAS LOOKING HIS WALLET, AND PASSPORT, NOT IN BELONGING LIST. PER PATIENT HE HAS THEM BEFORE YESTERDAY, ASSIST PATIENT LOOK ALL OVER TO ROOM AND HIS BELONGINGS, BUT STILL CAN NOT FIND. CHARGE NURSE AWARE OF.
--- NOTE | 2018-12-01 15:32 | NUR ---
RN NOTES ADMINISTERED DILAUDID 1 MG /ML IV PUSH PAIN 8/10 PER PATIENT REQUEST GENERALIZED, V/S TAKEN STABLE,. SEEN BY SURGEON DEBBIE PROFESSOR SCULPTURE, PATIENT NPO. CALL LIGHT WITHIN TO REACH, CONTINUED MONITORING.
[2018-12-01 16:00] VITALS: BP 119/74
--- NOTE | 2018-12-01 16:06 | NUR ---
Social service consult follow-up requested by pt. Social service consult initially requested by CASE TECHNICIAN Paris Monte for possible homelessness and alcohol abuse. YONI Gamez, referred Pt. to [facility] in [place], [place] on 11/29/18 for alcohol rehabilitation program. ZAKI faxed clinical referral packet to Sosa Chiang at [facility] at . Minnie contact is x [phone]. ZAKI left an additional voicemail to follow-up on the referral. ZAKI updated pt. on the state of his referral, and informed pt. of waitlist status. SW followed-up regarding discharge plans, and pt. states that he will no longer be able to drive to his cousins home to await being admitted to [facility]. Instead, he would like to access an emergency residential in the morning if discharged. ZAKI informed client that intakes are done in the morning between 10am and 11am at [facility] [address] [place] [address]. [place] [id number]. Pt. is receptive and will be attentive for available beds. ZAKI Recinos will inform ZAKI Wahl of pt.s request to be referred tomorrow morning to the residential. Pt. will require a TAP card upon discharge to get to the residential. No other services needed at this time. ZAKI is available if needed.
--- NOTE | 2018-12-01 18:30 | NUR ---
RN NOTES PATIENT IN THE BED, ANXIOUS, SHAKING, WITHDRAWAL, BUT REDIRECTABLE. INFUSING D5LR AT 250 ML/HR INTACT LEFT FA. CALL LIGHT WITHIN TO REACH. PATIENT CONTINENT USING WALKER BATHROOM. SAFETY PRECAUTION MAINTAINED ALL THE TIME.ENDORSED ONCOMING NURSE FOR PLAN OF CARE.
--- NOTE | 2018-12-01 19:20 | NUR ---
MS RN NOTE RECEIVED PT IN STABLE CONDITION A&O X 3-4, ABLE TO MAKE NEEDS KNOWN. CURRENTLY WATCHING TV IN BED. NO SIGNS OF SOB OR DISTRESS, NO C/O PAIN. ALL CURRENT NEEDS MET. SAFETY PRECAUTIONS IN PLACE: BED LOW, LOCKED, UPPER RAILS UP, AND CALL LIGHT WITHIN REACH. WILL CONT TO MONITOR.
[2018-12-01 20:00] VITALS: BP 150/57
--- NOTE | 2018-12-01 20:30 | NUR ---
MS RN NOTE CURRENT IV SITE INFILTRATED, REMOVED. NEW IV PLACED ON L HAND #20. WILL CONT TO MONITOR.
--- NOTE | 2018-12-01 20:48 | NUR ---
MS RN NOTE PRN DILAUDID 1 MG GIVEN FOR PAIN 8/10 LOCATED IN THE ABD. WILL CONT TO MONITOR.
--- NOTE | 2018-12-01 21:05 | NUR ---
MS RN NOTE PRN ZOFRAN GIVEN PER PT REQUEST FOR C/O NAUSEA. WILL CONT TO MONITOR.
[2018-12-02] MEDS: HYDROMORPHONE 1 MG/1 ML DISP.SYRIN IV PRN ×4 (01:51→22:28)
--- NOTE | 2018-12-02 01:51 | NUR ---
MS RN NOTE PRN DILAUDID 1 MG GIVEN IV FOR PAIN 9/10 LOCATED IN THE ABD. WILL CONT TO MONITOR.
[2018-12-02] MEDS: IV D5 LR 1,000 ML IV PRN ×2 (01:55→08:17)
[2018-12-02] MEDS: CHLORDIAZEPOXIDE HCL 25 MG CAPSULE PO SCH ×3 (04:52→21:23)
[2018-12-02] MEDS: BLOOD SUGAR DIAGNOSTIC 1 EACH STRIP IN SCH ×3 (05:04→21:23)
--- NOTE | 2018-12-02 06:30 | NUR ---
MS RN NOTE PT IN STABLE CONDITION A&O X 3-4, ABLE TO MAKE NEEDS KNOWN. CURRENTLY WATCHING TV IN BED. NO SIGNS OF SOB OR DISTRESS, NO C/O PAIN. ALL CURRENT NEEDS MET. SAFETY PRECAUTIONS IN PLACE: BED LOW, LOCKED, UPPER RAILS UP, AND CALL LIGHT WITHIN REACH. WILL CONT TO MONITOR AND ENDORSE TO NEXT SHIFT FOR MIRA.
[2018-12-02 07:35] LABS: BASOPHILS # (AUTO) 0.1 /CMM (0.0-0.2); BASOPHILS % (AUTO) 1.2 % (0.0-2.0); EOSINOPHILS % (AUTO) 2.1 % (0.0-6.0); HEMATOCRIT 31 % (39-51); HEMOGLOBIN 10.9 g/dL (13.5-17.5); LYMPHOCYTES # (AUTO) 1.1 /CMM (0.8-4.8); LYMPHOCYTES % (AUTO) 24.5 % (20.0-44.0); MEAN CORPUSCULAR HGB CONC 35 g/dl (31.0-36.0); MEAN CORPUSCULAR VOLUME 94 fL (80-96); MONOCYTES # (AUTO) 0.8 /CMM (0.1-1.30); MONOCYTES % (AUTO) 17.1 % (2.0-12.0); NEUTROPHILS # (AUTO) 2.5 /CMM (1.8-8.9); NEUTROPHILS % (AUTO) 55.1 % (43.0-81.0); PLATELET COUNT (AUTO) 190 /CMM (150-450); RED BLOOD CELL COUNT(AUTO) 3.34 MIL/uL (4.5-6.0); WHITE BLOOD COUNT (AUTO) 4.6 K/uL (4.3-11.0)
[2018-12-02 07:44] LABS: BILIRUBIN,TOTAL 0.9 mg/dL (0.2-1.0); CALCIUM, SERUM 8.3 mg/dL (8.5-10.1); CREATININE 0.6 mg/dL (0.6-1.3); MAGNESIUM 1.7 mg/dL (1.8-2.4); PHOSPHORUS 3.9 mg/dL (2.5-4.9); POTASSIUM 3.1 mmol/L (3.5-5.1); TOTAL PROTEIN, SERUM 6.1 g/dL (6.4-8.2)
[2018-12-02 08:00] VITALS: BP 121/68
[2018-12-02] MEDS ORDERED: METOCLOPRAMIDE HCL 10 MG/2 ML VIAL IV PRN (08:30)
[2018-12-02] MEDS: THIAMINE HCL 100 MG TABLET PO SCH (09:02)
[2018-12-02] MEDS: FOLIC ACID 1 MG TABLET PO SCH (09:02)
[2018-12-02] MEDS: PANTOPRAZOLE 40 MG VIAL IV SCH (09:07)
[2018-12-02] MEDS: POTASSIUM CL. PREMIX PERIPHER. 50 ML IV SCH ×4 (09:51→14:10)
[2018-12-02] MEDS: Magnesium 1GM/D5W 100ML PREMIX 100 ML IV SCH ×2 (09:51→15:16)
[2018-12-02] MEDS: LORAZEPAM INJ 2 MG/ML VIAL IV PRN ×2 (09:51→11:28)
--- NOTE | 2018-12-02 11:00 | NUR ---
PATIENT'S LEFT FOREARM APPEARED SWOLLEN ; PT COMPLAINS OF PAIN . IV LINE REMOVE FROM LEFT ARM. ICE PACK APPLIED. Jessica ISABEL INFORMED FOR POSSIBLE FRACTURE.
--- NOTE | 2018-12-02 11:30 | NUR ---
Per ZAKI Recinos's note, pt. was willing to go to a homeless detention. ZAKI contacted [facility] and spoke with Velasquez who informed ZAKI that they have a top bunk bed available. ZAKI gave Velasquez pt. name and per his request to hold the bed for the pt. ZAKI then met with pt. bedside. Pt. appears jittery and his hands were shaking continuously. Pt's left arm is swollen as well and pt's RN is aware. Per pt. he is going to try to make some phone calls again to see if he can stay with friends. If not, pt. will go if discharged today to [facility] detention located at [address] [place] [address]. Pt. will be given a TAP card upon discharge.
--- NOTE | 2018-12-02 12:09 | NUR ---
NEW ORDER FOR LEFT ARM X-RAY . NEW IV ASSESS TO RIGHT FOREARM G 22.
[2018-12-02] MEDS: HYDROCODONE/APAP 5/325MG 1 EACH TABLET PO PRN (14:19)
--- NOTE | 2018-12-02 14:41 | NUR ---
ZAKI was informed by BARI Florian that pt. is being discharged today. However, Pt. still has an IV. Pt. was accepted at [facility] residential in [facility] but needed to be there between 2-4PM. It is too late for the pt, to head to [facility] since he is taking the [employer] and won't arrive till after 4PM. SW to advocate for pt to stay one more night and have him discharge tomorrow morning. SW to follow up again tomorrow at 11AM with [facility] for residential placement. Addendum: 12/02/18 at 1445 by TOMY HAINES ZAKI updated showcase trimmer Alf with the aforementioned information.
[2018-12-02 16:00] VITALS: BP 111/82
--- NOTE | 2018-12-02 17:58 | NUR ---
PATIENT TRANSFERRED TO MS-2 ROOM 204-1 . REPORT GIVEN TO ELVIRA HOFFMANN
--- NOTE | 2018-12-02 18:10 | NUR ---
MS/RN NOTE THE PATIENT IS RECEIVED IN BED. ALERT AND ORIENTED X4. IN ROOM AIR AND DENIES SOB. RESPIRATION REGULAR AND UNLABORED. DENIES PAIN. THE PATIENT IN NO APPARENT DISTRESS. RIGHT ARM G 22 PATENT AND SALINE LOCKED. BED LOW AND LOCKED. SIDE RAILS UP X3. CALL LIGHT WITHIN REACH. WILL ENDORSE TO HEAD SAMPLER.
[2018-12-02] MEDS ORDERED: CHLO25CA22 PO (18:30)
[2018-12-02] MEDS ORDERED: ONDA4TAB5 PO (18:30)
--- NOTE | 2018-12-02 19:57 | NUR ---
RN OPENING NOTES RECEIVED REPORT FROM DAYSHIFT RN ELVIRA. FOUND Pt AWAKE, RESTING IN BED, WATCHING TV. NO S/S OF ACUTE DISTRESS OR SOB NOTED. Pt IS A/OX4, VERBAL, ABLE TO MAKE NEEDS KNOW. RESPIRATIONS ARE EVEN AND UNLABORED. IV ACCESS ON RFA #22G. SAFETY MEASURES IN PLACE. BED LOW, LOCKED, HOB ELEVATED, SIDE RAILS UP, CALL LIGHT AND BEDSIDE TABLE WITHIN REACH. WILL CONTINUE TO MONITOR Pt's CONDITION AND SAFETY THROUGHOUT THE NIGHT.
[2018-12-02 19:58] VITALS: BP 121/78
[2018-12-02 20:00] VITALS: BP 121/78
[2018-12-02] MEDS: ONDANSETRON HCL/PF 4 MG/2 ML VIAL IVP PRN (21:28)
--- NOTE | 2018-12-02 21:35 | NUR ---
RN NOTES ACCUCHECK BG 106.
[2018-12-03] MEDS: LORAZEPAM INJ 2 MG/ML VIAL IV PRN (01:43)
[2018-12-03] MEDS: HYDROCODONE/APAP 5/325MG 1 EACH TABLET PO PRN (03:15)
[2018-12-03] MEDS: CHLORDIAZEPOXIDE HCL 25 MG CAPSULE PO SCH (05:03)
[2018-12-03] MEDS: BLOOD SUGAR DIAGNOSTIC 1 EACH STRIP IN SCH (05:03)
--- NOTE | 2018-12-03 05:15 | NUR ---
RN NOTES BG ACCUCHECK 127. NO COVERAGE NEEDED AT THIS TIME.
--- NOTE | 2018-12-03 06:28 | NUR ---
RN CLOSING NOTES NO SIGNIFICANT CHANGES IN Pt's CONDITION. Pt REMAINS STABLE AT THIS TIME. NO S/S OF ACUTE DISTRESS OR SOB NOTED DURING THE NIGHT. ALL NEEDS MET AND ATTENDED TO. ALL ORDERED MEDS GIVEN. Pt IS RESTING COMFORTABLY IN BED. RESPIRATIONS EVEN AND UNLABORED. SAFETY MEASURES IN PLACE. WILL ENDORSE TO DAYSHIFT RN FOR Pt's MIRA.
[2018-12-03 08:00] VITALS: BP 115/65
--- NOTE | 2018-12-03 08:09 | NUR ---
MS/RN OPENING NOTE PATIENT IN BED IN STABLE CONDITION. A/O X 4. NO SIGNS OF ACUTE DISTRESS. NO COMPLAIN OF PAIN OR DISCOMFORT. ALL NEEDS ATTENDED TO. CALL LIGHT WITHIN REACH. WILL CONTINUE TO MONITOR TO ENSURE SAFETY.
[2018-12-03] MEDS: THIAMINE HCL 100 MG TABLET PO SCH (08:27)
[2018-12-03] MEDS: FOLIC ACID 1 MG TABLET PO SCH (08:27)
[2018-12-03] MEDS: PANTOPRAZOLE 40 MG VIAL IV SCH (08:27)
--- NOTE | 2018-12-03 10:37 | NUR ---
SW met with pt. again to discuss discharge plan. Pt. is ambulatory and appears to be doing much better. Pt. 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 Pt. stated his car is located at [address] [place] [address], in [facility]. SW gave pt. a pair of shoes since he didn't have one. Pt. was provided with the following referrals: [facility], [address], [facility] [address], and [facility], [address] [place], [address]. and [facility] [address] [facility] [address]. Pt. was also provided list of homeless shelters which included [facility] located at [address] [place] [id number]. , [facility] Homeless Resource Directory which includes food cannon, transitional housing, employment etc. Homeless waiver has been signed by Pt. and placed in Pt.s chart. Pt. will be transported via taxi to [address] [place] [address] [place].
--- NOTE | 2018-12-03 12:14 | NUR ---
MS/LINE O SCRIBE OPERATOR PATIENT DISCHARGE IN STABLE CONDITION, REFUSED TO GO TO [facility], PROVIDED ADDRESS [id number] [facility]. A/O X 4. NO SIGNS OF ACUTE DISTRESS. NO COMPLAIN OF PAIN OR DISCOMFORT. DISCHARGE EDUCATION AND TEACHINGS PROVIDED, VERBALIZED UNDERSTANDING. MADE AWARE TO FOLLOW UP WITH PRIMARY PHYSICIAN OR MULTIDISCIPLINARY CLINIC WITHIN A WEEK. PRESCRIPTION FOR LIBRIUM AND ZOFRAN PROVIDED, MADE AWARE TO AVOID ALCOHOL WHILE TAKING ZOFRAN. VERBALIZED UNDERSTANDING. ALL NEEDS ATTENDED TO. NAME BAND AND IV LINE REMOVED. TAXI VOUCHER PROVIDED, LEFT VIA TAXI IN STABLE CONDITION. Addendum: 12/03/18 at 1224 by SUNIL LATHAM RN PATIENT REFUSED DISCHARGE SKIN ASSESSMENT. OFFERED X 3 WITH RISKS AND BENEFITS EXPLAINED CONTINUE TO REFUSE.
== END 2018-12-03 12:00 | disposition home or self-care (01) | DRG 282 ==
LOC: ER 13:01 → TELE 22:59 → MED 11-28 08:14 → MEDSG2 12-02 17:44
PROVIDERS: ADMIT Nurse Practitioner Acute Care; ATTEND Hospitalist
DX: K85.20 Alcohol induced acute pancreatitis without necrosis or infection (principal); G92 Toxic encephalopathy; D69.59 Other secondary thrombocytopenia; E83.42 Hypomagnesemia; E44.1 Mild protein-calorie malnutrition; E88.09 Other disorders of plasma-protein metabolism, not elsewhere classified; F10.229 Alcohol dependence with intoxication, unspecified; E87.6 Hypokalemia; Y90.8 Blood alcohol level of 240 mg/100 ml or more; R74.0 Nonspecific elevation of levels of transaminase and lactic acid dehydrogenase [LDH]; F41.1 Generalized anxiety disorder; Z91.81 History of falling; F32.9 Major depressive disorder, single episode, unspecified; D64.9 Anemia, unspecified; Z59.0 Homelessness; M79.632 Pain in left forearm; F10.239 Alcohol dependence with withdrawal, unspecified; Z68.22 Body mass index [BMI] 22.0-22.9, adult
CPT/HCPCS: 36415; 71045-TC; 73090-TC; 76705-TC; 80048-TC; 80053-TC; 80061-TC; 80076-TC; 82962-TC; 83690-TC; 83735-TC; 84100-TC; 84443-TC; 85025-TC; 85730-TC; 87081-TC; A4216; C9113; G0378; G0480; J1170; J1885; J2060; J2270; J2405; J3411; J3475; J3480; J3490; J7030; J7050; J7060; J7120; Q9967